=== PATIENT | male | born 1955 | race African-American/Black ===

== ENCOUNTER 2017-07-27 17:58 | Emergency (ER) | payer MEDICAID, OTHER ==
[~2017-07-27] VITALS: Ht 180.3 cm; Wt 84.0 kg
[~2017-07-27 17:58] MED LIST: VIC; insulin
[2017-07-27 19:56] LABS: BASOPHILS % 0.4 % (0.0-2.0); EOSINOPHILS % 0.3 % (0.0-5.0); HEMATOCRIT. 43.8 % (42.0-52.0); HEMOGLOBIN. 14.3 g/dL (14.0-18.0); LYMPHOCYTES % 12.6 % (20.0-50.0); MEAN CORPUSCULAR HEMOGLOBIN 30.7 pg (28.0-32.0); MEAN CORPUSCULAR VOLUME 94.1 fL (80.0-94.0); MEAN PLATELET VOLUME 9.5 fl (7.4-10.4); MONOCYTES % 7.6 % (2.0-8.0); NEUTROPHILS % 79.1 % (40.0-76.0); PLATELET 232 x1000/uL (130-400); RED BLOOD CELL COUNT 4.65 mill/uL (4.7-6.1)
[2017-07-27 20:00] LABS: CHLORIDE 100 mEq/L (98-107)
[2017-07-27 20:08] LABS: PROTHROMBIN TIME 10.5 sec (9.4-11.6)
[2017-07-27] MEDS ORDERED: LIDOCAINE 5% PATCH TOP STA (22:14)
[2017-07-27] MEDS ORDERED: ASPIRIN 325MG TABLET PO ONE (22:15)
[2017-07-27 23:08] VITALS: BP 177/102
== END 2017-07-27 23:14 | disposition home or self-care (01) ==
LOC: ER 18:34
DX: R07.89 Other chest pain (principal); E11.65 Type 2 diabetes mellitus with hyperglycemia; E86.0 Dehydration; E78.00 Pure hypercholesterolemia, unspecified; I10 Essential (primary) hypertension; Z79.4 Long term (current) use of insulin; Z79.82 Long term (current) use of aspirin; Y09 Assault by unspecified means; Y92.89 Other specified places as the place of occurrence of the external cause; Y93.89 Activity, other specified; Y99.8 Other external cause status
CPT/HCPCS: 36415; 71045; 80053; 82962; 84484; 85025; 85610; 93005; 99285; Z7610

== ENCOUNTER 2018-02-03 23:40 | Emergency (ER) | payer MEDICAID ==
[~2018-02-03] VITALS: Ht 172.7 cm; Wt 86.0 kg
[2018-02-03 23:55] VITALS: BP 180/94
== END 2018-02-04 00:32 | disposition left against medical advice (07) ==
LOC: ER 23:40
DX: Z53.21 Procedure and treatment not carried out due to patient leaving prior to being seen by health care provider (principal)